=== PATIENT | female | born 1930 | race African-American/Black ===

== ENCOUNTER 2016-11-26 01:27 | Inpatient (IN) | payer OTHER, BC ==
[2016-11-26] VITALS (7 sets, daily range): BP systolic 114–198; BP diastolic 59–90
[~2016-11-26] VITALS: Ht 154.9 cm; Wt 49.8 kg
--- NOTE | ~2016-11-26 | EKG ---
[address] [place] [address] ELECTROCARDIOGRAM REPORT Name: BROOKS PANIAGUA Room #: 456-P ADM IN M.R.#: [id number] Admission: 11/26/16 Attend Phys: Ellis Price DO Discharge: Date of : 32 Report #: [id number] THIS REPORT FOR: //name// [facility] ED Test Date: 2016-11-26 Test Time: 01:43:33 Pat Name: BROOKS PANIAGUA Department: Room: 456 Gender: F Heel Layer: [id number] : 1930 Requested By: Latisha Reaves Order Number: [id number] MD: Mukesh Doe Measurements Intervals [place] Rate: 82 P: 34 NM: 147 QRS: -67 QRSD: 91 T: 40 QT: 412 QTc: 482 Interpretive Statements Sinus rhythm Inferior infarct, old No previous ECG available for comparison Electronically Signed On 11-26-2016 9:18:37 CDT by Mukesh Doe [email or web address] <ELECTRONICALLY SIGNED> By: Mukesh Doe MD, [facility] 11/26/16 0918 0143 [id number] Mukesh Doe MD, FACC /EPI
[~2016-11-26 01:27] MED LIST: ALBUTEROL 0.5% INH; ALBUTEROL2.5 MG/31 INH; DIGOXIN125 MCG PO; DILANTIN100 MG PO; DUONEB 2.5-0.5 M3 ML; DUONEB 2.5-0.5 M3 ML INH; DUONEB INH; FOSAMAX 70 MG T70 MG PO; FUROSEMIDE 40 M40 M1 PO; JANUMET 50-5001 EACH PO; K-DUR 20 MEQ T20 MEQ PO; LANSOPRAZOLE15 MG PO; LISINOPRIL2.5 MG PO; NOVOLOG100 UNIT/1; PLAVIX 75 MG TA75 M1 PO; POTASSIUM20 PO; PRADAXA150 MG PO; PREDNISONE 1 MG1 M1; PREDNISONE 10 M10 M1 PO; PRILOSEC 20 MG20 MG PO; SIMVASTATIN40 MG PO; THEO-DUR200 MG PO; THEOPHYLLINE E100 MG; TOPROL XL50 MG PO; ZETIA10 MG PO
[2016-11-26 02:46] LABS: ABSOLUTE NEUTROPHILS 5.9 thou/uL (1.4-8.2); BASOPHILS 0.5 % (0.0-2.0); HEMOGLOBIN 12.6 gm/dL (12.0-15.0); WBC 8.6 thou/uL (4.0-11.0)
[2016-11-26 02:48] LABS: EOSINOPHILS 2.5 % (0.0-3.0); HEMATOCRIT 38.1 % (37.0-47.0); LYMPHOCYTES 24.1 % (24.0-44.0); MCH 28.4 pg (26.0-34.0); MCHC 33.2 g/dL (28.0-37.0); MCV 85.6 fL (80.0-100.0); MONOCYTES 4.9 % (1.0-8.0); PLATELET COUNT 155 thou/uL (150-400); RBC 4.46 mil/uL (4.20-5.00); RDW 15.1 % (10.5-14.5)
[2016-11-26 02:56] LABS: ANION GAP 3 mmol/L (7-16); BUN 17 mg/dL (7-18); CALCIUM 9.1 mg/dL (8.5-10.1); CHLORIDE 107 mmol/L (98-107); CO2 31 mmol/L (21-32); CREATININE 1.1 mg/dL (0.6-1.3); GLUCOSE 177 mg/dL (70-99); SODIUM 141 mmol/L (136-145)
[2016-11-26 02:58] LABS: APTT 26.4 Seconds (24.5-32.8); INR 1.1; PROTIME 11.1 Seconds (9.3-11.4)
[2016-11-26 03:02] LABS: MANUAL DIFF NO
[2016-11-26 03:07] LABS: ALBUMIN 3.2 g/dL (3.4-5.0); ALKALINE PHOSPHATASE 88 U/L (46-116); NT-PRO BRAIN NAT PEPTIDE 1100 pg/mL (<300); SGOT 13 U/L (15-37); SGPT 9 U/L (30-65); TOTAL BILIRUBIN 0.4 mg/dL (<0.1-1.0); TOTAL PROTEIN 7.3 g/dL (6.4-8.2); TROPONIN-I < 0.04 ng/mL (<0.04-0.07)
[2016-11-26] MEDS ORDERED: ASPIR 8181 MG PO (04:20)
[2016-11-26] MEDS ORDERED: IPRAT-ALBUT 0.5-3 ML INH (04:21)
[2016-11-26] MEDS ORDERED: LOPRESSOR50 PO (04:22)
[2016-11-26] MEDS ORDERED: ZANTAC 150MG T150 MG PO (04:26)
[2016-11-26] MEDS ORDERED: FEVERALL650 MG RECTAL (04:27)
[2016-11-26] MEDS ORDERED: LOCOID 0.1% CRE15 GM (04:29)
[2016-11-26] MEDS ORDERED: TYLENOL325 MG PO (04:29)
[2016-11-26] MEDS ORDERED: MILK OF MA2400 MG/10 PO (04:30)
[2016-11-26] MEDS ORDERED: LIORESAL 10 MG10 MG PO ×2 (07:51→07:53)
[2016-11-26] MEDS ORDERED: PROVIGIL 100 M100 M1 PO (07:55)
[2016-11-27 04:45] VITALS: BP 172/75
[2016-11-27 05:33] LABS: ABSOLUTE NEUTROPHILS 3.4 thou/uL (1.4-8.2); BASOPHILS 0.5 % (0.0-2.0); EOSINOPHILS 4.5 % (0.0-3.0); HEMATOCRIT 38.3 % (37.0-47.0); HEMOGLOBIN 12.7 gm/dL (12.0-15.0); LYMPHOCYTES 38.4 % (24.0-44.0); MCH 28.3 pg (26.0-34.0); MCHC 33.1 g/dL (28.0-37.0); MCV 85.4 fL (80.0-100.0); MONOCYTES 5.8 % (1.0-8.0); PLATELET COUNT 140 thou/uL (150-400); POLYS 50.8 % (36.0-66.0); RBC 4.48 mil/uL (4.20-5.00); RDW 14.5 % (10.5-14.5); WBC 6.8 thou/uL (4.0-11.0)
[2016-11-27 05:57] LABS: MANUAL DIFF NO
[2016-11-27 06:10] LABS: CALCIUM 9.2 mg/dL (8.5-10.1); CREATININE 1.1 mg/dL (0.6-1.3); POTASSIUM 3.3 mmol/L (3.5-5.1)
[2016-11-27 08:30] VITALS: BP 174/65
[2016-11-27 12:43] VITALS: BP 183/76
[2016-11-27 16:00] VITALS: BP 192/85
[2016-11-27 18:21] VITALS: BP 176/80
[2016-11-27 19:54] VITALS: BP 176/72
[2016-11-28 04:00] VITALS: BP 181/73
[2016-11-28 07:11] LABS: CALCIUM 9.8 mg/dL (8.5-10.1); CREATININE 1.1 mg/dL (0.6-1.3); POTASSIUM 3.7 mmol/L (3.5-5.1)
[2016-11-28 08:33] VITALS: BP 166/76
[2016-11-28 15:06] VITALS: BP 138/55
[2016-11-28 20:00] VITALS: BP 147/62
[2016-11-29 04:00] VITALS: BP 129/74
[2016-11-29 07:42] VITALS: BP 155/71
[2016-11-29 12:05] VITALS: BP 146/68
[2016-11-29] MEDS ORDERED: ONDANSETRON HCL4 M2 PO (14:26)
[2016-11-29 15:48] VITALS: BP 146/68
== END 2016-11-29 16:40 | DRG 392 ==
LOC: ER 01:27 → 4W 05:07
PROVIDERS: Emergency Medicine; Family Medicine; Internal Medicine Endocrinology, Diabetes & Metabolism
DX: A08.4 Viral intestinal infection, unspecified (principal); I69.954 Hemiplegia and hemiparesis following unspecified cerebrovascular disease affecting left non-dominant side; E11.9 Type 2 diabetes mellitus without complications; I10 Essential (primary) hypertension; E78.5 Hyperlipidemia, unspecified; I25.10 Atherosclerotic heart disease of native coronary artery without angina pectoris; M81.0 Age-related osteoporosis without current pathological fracture; J44.9 Chronic obstructive pulmonary disease, unspecified; Z85.9 Personal history of malignant neoplasm, unspecified; E87.6 Hypokalemia; E03.9 Hypothyroidism, unspecified; Z88.6 Allergy status to analgesic agent; Z88.8 Allergy status to other drugs, medicaments and biological substances; Z91.041 Radiographic dye allergy status; Z88.2 Allergy status to sulfonamides; Z91.018 Allergy to other foods
CPT/HCPCS: 10045